=== PATIENT | female | born 1990 | race African-American/Black ===

== ENCOUNTER 2017-09-13 20:35 | Inpatient (IN) | payer OTHER ==
[2017-09-13] MEDS ORDERED: LACTATED RINGER'S 1,000 ML IV ×2 (21:02)
[2017-09-13 21:26] LABS: ADD MAN DIFF? NO
[2017-09-13 21:29] LABS: WHITE BLOOD COUNT 10.9 10^3/ul (4.8-10.8)
[2017-09-13 21:29] LABS: ABNORMAL IP MESSAGE 1; BASOPHILS % 0.2 % (0.0-2.0); EOSINOPHILS % 0.3 % (0.0-7.0); HEMATOCRIT 40.3 % (37.0-47.0); LYMPHOCYTES # 1.5 10^3/ul (0.8-2.9); LYMPHOCYTES % 13.9 % (15.0-51.0); MEAN CORPUSCULAR HEMOGLOBIN 24.8 pg (29.0-33.0); MEAN CORPUSCULAR HGB CONC 32.3 g/dl (32.0-37.0); MEAN CORPUSCULAR VOLUME 76.9 fl (82.0-101.0); MEAN PLATELET VOLUME 10.6 fl (7.4-10.4); MONOCYTE # 1.8 10^3/ul (0.3-0.9); MONOCYTES % 16.7 % (0.0-11.0); NEUTROPHIL # 7.5 10^3/ul (1.6-7.5); NEUTROPHILS % 68.3 % (39.0-77.0); PLATELET COUNT 244 10^3/UL (140-415); RED BLOOD COUNT 5.24 10^6/ul (4.20-5.40); RED CELL DISTRIBUTION WIDTH 13.9 % (11.5-14.5)
[2017-09-13] MEDS: LACTATED RINGER'S 1,000 ML IV ×3 (21:29→22:38)
[2017-09-13] MEDS ORDERED: IBUPROFEN 600 MG TAB PO (21:30)
[2017-09-13] MEDS ORDERED: LIDOCAINE 1% (MPF) 30 ML INJ INJ (21:30)
[2017-09-13] MEDS ORDERED: CARBOPROST 250 MCG INJ IM (21:30)
[2017-09-13] MEDS ORDERED: METHYLERGONOVINE 0.2 MG INJ IM (21:30)
[2017-09-13] MEDS ORDERED: BUTORPHANOL 2 MG INJ IV (21:30)
[2017-09-13] MEDS ORDERED: OXYTOCIN 30 UNITS/LR 500 ML IV ×2 (21:30)
[2017-09-13] MEDS ORDERED: MISOPROSTOL 200 MCG TAB PR (21:30)
[2017-09-13 21:33] LABS: INR 0.89; PARTIAL THROMBOPLASTIN TIME 26.2 Sec (25.0-35.0); PROTIME 12.1 Sec (11.9-14.9); PT RATIO 0.9
[2017-09-13] MEDS ORDERED: FENTAnyl 2MCG/ML-ROPIV 0.2% 100 ML (21:51)
[2017-09-13] MEDS ORDERED: hydrALAzine 20 MG INJ IV (23:30)
[2017-09-13] MEDS ORDERED: ONDANSETRON 4 MG INJ IV ×2 (23:30)
[2017-09-13] MEDS ORDERED: HYDROmorphONE (0.2 MG/ML) 10ML SYG IV ×3 (23:30)
[2017-09-13] MEDS ORDERED: FENTAnyl 2MCG/ML-ROPIV 0.2% 100 ML BAG EPI (23:30)
[2017-09-13] MEDS ORDERED: FENTAnyl 50 MCG/ML VIAL IV ×3 (23:30)
[2017-09-13] MEDS ORDERED: MEPERIDINE 25 MG INJ IV (23:30)
[2017-09-13] MEDS ORDERED: OXYCODONE/ACETAMINOPHEN (5/325) TAB PO ×2 (23:30)
[2017-09-13] MEDS ORDERED: TRIMETHOBENZAMIDE 100 MG/ML VIAL IM ×2 (23:30)
[2017-09-13] MEDS ORDERED: EPHEDrine SULFATE 50 MG/5 ML SYG IV (23:30)
[2017-09-13] MEDS ORDERED: LABETALOL HCL 20MG INJ IV (23:30)
[2017-09-13] MEDS ORDERED: ALBUTEROL 0.083% (NEB) 2.5 MG/3 ML AMP HHN (23:30)
[2017-09-13] MEDS ORDERED: DIPHENHYDRAMINE 50 MG INJ IV ×2 (23:30)
[2017-09-13] MEDS ORDERED: NALOXONE (0.4 MG/ML) INJ IV (23:30)
[2017-09-13] MEDS ORDERED: IPRATROPIUM (NEB) 0.5 MG/2.5 ML AMP HHN (23:30)
[2017-09-14] MEDS: OXYTOCIN 30 UNITS/LR 500 ML IV ×2 (00:37→04:56)
[2017-09-14] MEDS ORDERED: MISOPROSTOL 200 MCG TAB PR (01:00)
[2017-09-14] MEDS ORDERED: ACETAMINOPHEN 325 MG TAB PO ×2 (01:00)
[2017-09-14] MEDS ORDERED: ONDANSETRON 4 MG INJ IV (01:00)
[2017-09-14] MEDS ORDERED: DIBUCAINE 1% 30 GM OINT PR (01:00)
[2017-09-14] MEDS ORDERED: CARBOPROST 250 MCG INJ IM (01:00)
[2017-09-14] MEDS ORDERED: HYDROCODONE/APAP (5/325) TAB PO (01:00)
[2017-09-14] MEDS ORDERED: DIPHENHYDRAMINE 25 MG CAP PO (01:00)
[2017-09-14] MEDS ORDERED: METHYLERGONOVINE 0.2 MG INJ IM (01:00)
[2017-09-14] MEDS ORDERED: OXYTOCIN 30 UNITS/LR 500 ML IV (01:00)
[2017-09-14 01:21] LABS: HEPATITIS B SURFACE ANTIGEN NEGATIVE (NEGATIVE)
[2017-09-14] MEDS: HYDROCODONE/APAP (5/325) TAB PO ×2 (04:04→10:18)
[2017-09-14] MEDS: IBUPROFEN 800 MG TAB PO ×3 (05:39→17:21)
[2017-09-14] MEDS: LANOLIN 7 GM TUBE TOP (09:22)
[2017-09-14] MEDS: SENNA/DOCUSATE NA (8.6MG/50MG) TAB PO ×2 (09:22→21:03)
[2017-09-14 22:22] LABS: RAPID PLASMA REAGIN NONREACTIVE (NR)
[2017-09-15] MEDS: IBUPROFEN 800 MG TAB PO ×5 (00:13→23:30)
[2017-09-15] MEDS: SENNA/DOCUSATE NA (8.6MG/50MG) TAB PO ×2 (09:02→21:48)
[2017-09-15 10:57] LABS: ADD MAN DIFF? NO
[2017-09-15 11:08] LABS: ABNORMAL IP MESSAGE 1; BASOPHILS % 0.2 % (0.0-2.0); EOSINOPHILS # 0.1 10^3/ul (0.0-0.5); EOSINOPHILS % 0.8 % (0.0-7.0); HEMATOCRIT 36.2 % (37.0-47.0); HEMOGLOBIN 11.3 g/dl (12.0-16.0); LYMPHOCYTES # 1.4 10^3/ul (0.8-2.9); LYMPHOCYTES % 14.1 % (15.0-51.0); MEAN CORPUSCULAR HEMOGLOBIN 24.5 pg (29.0-33.0); MEAN CORPUSCULAR HGB CONC 31.2 g/dl (32.0-37.0); MEAN CORPUSCULAR VOLUME 78.5 fl (82.0-101.0); MEAN PLATELET VOLUME 10.3 fl (7.4-10.4); MONOCYTE # 1.6 10^3/ul (0.3-0.9); MONOCYTES % 15.9 % (0.0-11.0); NEUTROPHIL # 6.9 10^3/ul (1.6-7.5); NEUTROPHILS % 68.3 % (39.0-77.0); PLATELET COUNT 205 10^3/UL (140-415); RED BLOOD COUNT 4.61 10^6/ul (4.20-5.40); RED CELL DISTRIBUTION WIDTH 14.2 % (11.5-14.5)
[2017-09-15 11:08] LABS: WHITE BLOOD COUNT 10.1 10^3/ul (4.8-10.8)
[2017-09-15 11:11] LABS: POSITIVE DIFF @See below
[2017-09-16] MEDS: HYDROCODONE/APAP (5/325) TAB PO (00:37)
[2017-09-16] MEDS: IBUPROFEN 800 MG TAB PO ×2 (05:39→11:48)
[2017-09-16] MEDS: SENNA/DOCUSATE NA (8.6MG/50MG) TAB PO (09:45)
[2017-09-16] MEDS: DIPHTH/TET/ACEL PERTUSS (ADULT) 0.5 ML VIAL IM* (09:48)
[2017-09-16] MEDS: MEASLES,MUMPS,RUBELLA VACCINE INJ SC* (09:48)
== END 2017-09-16 13:30 | disposition home or self-care (01) | DRG 775 ==
LOC: OBT 20:35 → PP1 09-14 02:31 → L-D 20:37 → OBT 20:50 → L-D 20:50
PROVIDERS: Obstetrics & Gynecology
PROC: 10E0XZZ Delivery of Products of Conception, External Approach (ICD-10-PCS; principal; 2017-09-14)
DX: O80 Encounter for full-term uncomplicated delivery (principal); Z37.0 Single live birth; Z3A.39 39 weeks gestation of pregnancy
CPT/HCPCS: 62319; 85025; 85610; 85730; 86592; 86900; 86901; 87340; 90715